=== PATIENT | female | born 1975 | race Caucasian/White ===

== ENCOUNTER 2018-07-17 14:28 | Emergency (ER) | payer MEDICAID, OTHER ==
--- NOTE | 2018-07-17 14:52 | EDPHY ---
H & P Stated Complaint: Pt reports anxiety, SOSA, CP - HX of same Time Seen by Provider: 07/17/18 14:50 - Personal History LMP (Females 10-55): 1-7 Days Ago Current Tetanus Diphtheria and Acellular Pertussis (TDAP): Yes Tetanus Vaccine Date: within last 10 years - Medical/Surgical History Hx Asthma: No Hx Chronic Respiratory Disease: No Hx Diabetes: No Hx Cardiac Disease: No Hx Renal Disease: No Hx Cirrhosis: No Hx Alcoholism: No Hx HIV/AIDS: No Hx Splenectomy or Spleen Trauma: No Other PMH: APPENDECTOMY, Depression, Anxiety - Social History Smoking Status: Former smoker Constitutional: Initial Vital Signs Temperature (C) 36.8 C 07/17/18 14:32 Heart Rate 76 07/17/18 14:32 Respiratory Rate 18 07/17/18 14:32 Blood Pressure 109/76 07/17/18 14:32 O2 Sat (%) 99 07/17/18 14:32 O2 Delivery Mode Room Air Allergies/Adverse Reactions: prochlorperazine edisylate [From Compazine] Allergy (Verified 08/22/13 06:59) prochlorperazine maleate [From Compazine] Allergy (Verified 08/22/13 06:59) Home Medications: Medication Instructions Recorded Wellbutrin Xl 07/17/18 Medical Decision Making ED Course/Re-evaluation: CHIEF COMPLAINT: Panic attack HISTORY OF PRESENT ILLNESS: 43-year-old female who is had multiple anxiety and panic attacks throughout her life. She has a panic attack which started a few minutes ago. She is having spasm of her feet and hands. She is accompanied in the room by 2 friends. She has not told me what has triggered this event. She denies anything different than her usual panic attack which is just more severe. REVIEW OF SYSTEMS: A comprehensive 10 system review of systems is otherwise negative aside from elements mentioned in the history of present illness and medical decision making. PHYSICAL EXAM: HR, BP, O2 Sat, RR. Temp noted General Appearance: Alert, well hydrated, appropriate, and non-toxic appearing. Head: Atraumatic without scalp tenderness or obvious injury Eyes: Pupils equal, round, reactive to light and accommodation, EOMI, no trauma , no injection. Ears: Clear bilaterally, no perforation, normal landmarks Nose: Atraumatic, no rhinorrhea, clear. Throat: There is no erythema or exudates, no lesions, normal tonsils, mucus membranes moist. Neck: Supple, 2+ carotid upstroke, nontender, no lymphadenopathy. Respiratory: Hyperventilating. No retractions, no distress, no wheezes, and no accessory muscle use. Lungs are clear to auscultation bilaterally. Cardiovascular: Regular rate and rhythm, no murmurs, rubs, or gallops. Bilateral carotid, radial, dorsalis pedis, and posterior tibial pulses intact. Good capillary refill all extremities. Gastrointestinal: Abdomen is soft, nontender, non-distended, no masses, no rebound, no guarding, no peritoneal signs. Musculoskeletal: Carpopedal spasm. Normal active ROM of all extremities, atraumatic. Neurological: Alert, appropriate, and interactive. The patient has normal DTRs and non-focal cranial nerves, motor, sensory, and cerebellar exam. Skin: No rashes, good turgor, no nodules on palpation. Past medical history: Anxiety Past surgical history: Noncontributory Family history: Noncontributory Social history: Single, employed, does not abuse tobacco drugs or alcohol DIFFERENTIAL DIAGNOSIS: Includes but is not limited to: Panic attack, anxiety attack, anxiety disorder, myocardial infarction, pulmonary embolus, hypoxemia MEDICAL DECISION MAKING: This patient is having an exacerbation of her usual anxiety. She does not often get panic attacks but when she does they act just like this. She has carpal pedal spasm on examination and she is hyperventilating. I have given her 2 mg of Ativan orally. I have put a non- rebreather mask on her but have not plugged in since she is saturating 100%. This patient feels much better. She is wanting to go home at this point. I will give her a few Ativan and she will follow up with outpatient psychiatric resources Departure - Departure Disposition: Home, Routine, Self-Care Clinical Impression: Anxiety, Panic attacks Condition: Good Instructions: Panic Attack (ED) Referrals: NONE *PRIMARY CARE P,. [Primary Care Provider] - As per Instructions
[2018-07-17] MEDS ORDERED: LORazepam 1 MG TAB PO ONE ×2 (14:59→15:00)
[2018-07-17] MEDS ORDERED: LORAZEPAM 1 MG PREPACK#4 BTL TAKEHOME ONE (15:53)
[2018-07-17 16:07] VITALS: BP 103/78
== END 2018-07-17 16:07 | disposition home or self-care (01) ==
DX: F41.0 Panic disorder [episodic paroxysmal anxiety] (principal)